=== PATIENT | female | born 1985 | race Caucasian/White ===

== ENCOUNTER 2019-08-23 11:32 | Outpatient (CLI) | payer BC ==
--- NOTE | 2019-08-23 11:52 | RAD ---
Exam: XR Foot Rt 3 View STANDARD HISTORY: Right foot pain. Patient states she kicked a door 2 weeks ago. Pain is predominantly at the second an d third metatarsals. COMPARISON: None FINDINGS: There is a slightly displaced fracture involving the neck of the right second metatarsal. No addition al fracture is seen, and there is no evidence of a dislocation. IMPRESSION: Fracture distal right second metatarsal.
== END 2019-08-23 11:33 | disposition home or self-care (01) ==
LOC: BICRAD 11:32
PROVIDERS: ATTEND Family Medicine
DX: M79.671 Pain in right foot (principal); S92.321A Displaced fracture of second metatarsal bone, right foot, initial encounter for closed fracture

== ENCOUNTER 2022-07-22 14:05 | Outpatient (CLI) | payer BC | END 2022-07-22 14:06 | disposition home or self-care (01) | LOC: BICRAD 14:05 | PROVIDERS: ATTEND Family Medicine | DX: M25.532 Pain in left wrist (principal); S62.347A Nondisplaced fracture of base of fifth metacarpal bone, left hand, initial encounter for closed fracture ==

== ENCOUNTER 2022-09-03 13:00 | Outpatient (CLI) | payer BC | END 2022-09-03 13:01 | disposition home or self-care (01) | LOC: SCSRAD 13:00 | PROVIDERS: ATTEND Family Medicine | DX: M79.642 Pain in left hand (principal) ==

== ENCOUNTER 2024-07-20 09:28 | Outpatient (CLI) | payer BC | END 2024-07-20 09:29 | disposition home or self-care (01) | LOC: BICRAD 09:28 | PROVIDERS: ATTEND Otolaryngology | DX: R22.1 Localized swelling, mass and lump, neck (principal) | CPT/HCPCS: 71046 ==